=== PATIENT | female | born 1980 | race Caucasian/White ===

== ENCOUNTER → 2024-01-22 14:40 | Outpatient (REF) | payer SELFPAY | LOC: PNTC 14:40 | PROVIDERS: ATTENDING PHYSICIAN Advanced Practice Midwife | DX: O09.529 Supervision of elderly multigravida, unspecified trimester (principal); Z36.0 Encounter for antenatal screening for chromosomal anomalies; Z36.82 Encounter for antenatal screening for nuchal translucency | CPT/HCPCS: 36415; 76801; 76813 ==

== ENCOUNTER → 2024-05-25 08:59 | Outpatient (REF) | payer OTHER, SELFPAY | LOC: PNTC 08:59 | PROVIDERS: ATTENDING PHYSICIAN Advanced Practice Midwife | DX: O09.529 Supervision of elderly multigravida, unspecified trimester (principal) | CPT/HCPCS: 59025; 76818 ==

== ENCOUNTER → 2024-06-01 13:49 | Outpatient (REF) | payer OTHER, SELFPAY | LOC: PNTC 13:49 | PROVIDERS: ATTENDING PHYSICIAN Advanced Practice Midwife | DX: O09.529 Supervision of elderly multigravida, unspecified trimester (principal) | CPT/HCPCS: 59025; 76816 ==

== ENCOUNTER → 2024-06-08 09:30 | Outpatient (REF) | payer OTHER, SELFPAY | LOC: PNTC 09:30 | PROVIDERS: ATTENDING PHYSICIAN Advanced Practice Midwife | DX: O09.529 Supervision of elderly multigravida, unspecified trimester (principal) | CPT/HCPCS: 59025; 76815 ==

== ENCOUNTER → 2024-06-15 09:24 | Outpatient (REF) | payer OTHER, SELFPAY | LOC: PNTC 09:24 | PROVIDERS: ATTENDING PHYSICIAN Advanced Practice Midwife | DX: O09.521 Supervision of elderly multigravida, first trimester (principal) | CPT/HCPCS: 59025; 76815 ==

== ENCOUNTER 2024-06-22 09:41 | Observation (INO) | payer OTHER, SELFPAY ==
[2024-06-22 10:32] LABS: Hematocrit 34.4 % (37.0-47.0); Hemoglobin 11.5 g/dL (12.0-16.0); Mean Corp Hgb Conc. 33.4 g/dL (33.0-37.0); Mean Corpuscular Volume 95.8 fL (81.0-99.0); Platelet Count 223 10^3/uL (130-400); Red Blood Cell Count 3.59 10^6/uL (4.20-5.40); Red Cell Dist. Width 13.5 % (11.5-14.5); Urine Albumin Negative (Neg - Trace); Urine Bilirubin Negative (Negative); Urine Character Clear (Clear); Urine Color Straw; Urine Glucose Negative (Negative); Urine Ketone Negative (Negative); Urine Leukocyte Negative (Negative); Urine Nitrite Negative (Negative); Urine Occult Blood Negative (Negative); Urine Urobilinogen Negative (Neg - 1+); White Blood Cell Count 13.2 10^3/uL (4.8-10.8)
[2024-06-22 10:36] VITALS: BP 141/92; BMI 30.7
[2024-06-22 10:40] LABS: ALT (SGPT) 17 U/L (0-35); AST (SGOT) 27 U/L (14-36); Albumin 3.4 g/dl (3.5-5.0); Alkaline Phosphatase 124 U/L (38-126); Blood Urea Nitrogen 14 mg/dl (7-17); Calcium 11.1 mg/dl (8.4-10.2); Carbon Dioxide 22 mmol/L (22-30); Chloride 104 mmol/L (98-107); Glucose 75 mg/dl (70-99); Potassium 4.2 mmol/L (3.5-5.1); Sodium 134 mmol/L (135-145); Total Bilirubin 0.1 mg/dl (0.2-1.3); Total Protein 6.2 g/dl (6.3-8.2); eGFR > 60.00
[2024-06-22 11:13] LABS: Protein/creatinine Ratio 0.7; Urine Protein 16 mg/dl
[2024-06-22] MEDS: LR 1000 IV (12:30)
== END 2024-06-22 14:54 | disposition home or self-care (01) ==
LOC: LDRP 09:41
PROVIDERS: ADMITTING PHYSICIAN Obstetrics & Gynecology; ATTENDING PHYSICIAN Advanced Practice Midwife
DX: O14.13 Severe pre-eclampsia, third trimester (principal); Z3A.35 35 weeks gestation of pregnancy
CPT/HCPCS: 59025; 76815; 80053; 81003; 82570; 84156; 85027; G0378

== ENCOUNTER 2024-06-29 10:26 | Observation (INO) | payer OTHER, SELFPAY ==
[2024-06-29 10:49] VITALS: BP 143/87; BMI 31.3
[2024-06-29 11:04] LABS: % Basophils 0.2 % (0-2); % Eosinophils 0.7 % (0-6); % Immature Granulocytes 0.4 % (0-0.5); % Lymphocytes 32.1 % (20.5-51.1); % Monocytes 5.4 % (1.7-9.3); % Neutrophils 61.2 % (42.2-75.2); Absolute Eosinophils 0.1 10^3/uL (0-0.7); Absolute Lymphocytes 3.4 10^3/uL (1.2-3.4); Absolute Monocytes 0.6 10^3/uL (0.1-0.6); Absolute Neutrophils 6.4 10^3/uL (1.4-6.5); Hematocrit 34.7 % (37.0-47.0); Hemoglobin 11.8 g/dL (12.0-16.0); Mean Platelet Volume 11.1 fL (7.4-10.4); Nucleated Red Blood Cells % 0 %; Platelet Count 206 10^3/uL (130-400); Red Blood Cell Count 3.69 10^6/uL (4.20-5.40); Red Cell Dist. Width 13.4 % (11.5-14.5); White Blood Cell Count 10.4 10^3/uL (4.8-10.8)
[2024-06-29 11:11] LABS: ALT (SGPT) 15 U/L (0-35); AST (SGOT) 27 U/L (14-36); Albumin 3.4 g/dl (3.5-5.0); Alkaline Phosphatase 120 U/L (38-126); Blood Urea Nitrogen 13 mg/dl (7-17); Calcium 10.3 mg/dl (8.4-10.2); Carbon Dioxide 24 mmol/L (22-30); Chloride 102 mmol/L (98-107); Estimated Creatinine Clearance 88 ml/min; Glucose 75 mg/dl (70-99); Potassium 4.2 mmol/L (3.5-5.1); Sodium 133 mmol/L (135-145); Total Bilirubin 0.3 mg/dl (0.2-1.3); Total Protein 6.3 g/dl (6.3-8.2); eGFR > 60.00
== END 2024-06-29 12:00 | disposition home or self-care (01) ==
LOC: PNTC-IN 10:26
PROVIDERS: ADMITTING PHYSICIAN Obstetrics & Gynecology; ATTENDING PHYSICIAN Advanced Practice Midwife
DX: O14.03 Mild to moderate pre-eclampsia, third trimester (principal); O09.523 Supervision of elderly multigravida, third trimester; Z3A.36 36 weeks gestation of pregnancy; Z88.0 Allergy status to penicillin; Z88.8 Allergy status to other drugs, medicaments and biological substances; Z88.3 Allergy status to other anti-infective agents; Z91.040 Latex allergy status; Z87.442 Personal history of urinary calculi
CPT/HCPCS: 59025; 76816; 80053; 85025; G0378

== ENCOUNTER 2024-06-29 23:07 | Inpatient (IN) | payer OTHER, SELFPAY ==
[2024-06-29 23:15] VITALS: BMI 30.7
[2024-06-29] MEDS: LR 1000 IV (23:59)
[2024-06-30 00:10] LABS: Mean Corp Hgb Conc. 34.4 g/dL (33.0-37.0); Mean Corpuscular Hgb 32.1 pg (27.0-31.0); Mean Corpuscular Volume 93.3 fL (81.0-99.0); Platelet Count 240 10^3/uL (130-400); Red Blood Cell Count 3.43 10^6/uL (4.20-5.40); Red Cell Dist. Width 13.5 % (11.5-14.5); White Blood Cell Count 11.7 10^3/uL (4.8-10.8)
[2024-06-30 00:31] LABS: ALT (SGPT) 15 U/L (0-35); AST (SGOT) 28 U/L (14-36); Albumin 3.6 g/dl (3.5-5.0); Alkaline Phosphatase 118 U/L (38-126); Blood Urea Nitrogen 17 mg/dl (7-17); Calcium 10.7 mg/dl (8.4-10.2); Carbon Dioxide 20 mmol/L (22-30); Chloride 102 mmol/L (98-107); Estimated Creatinine Clearance 87 ml/min; Glucose 87 mg/dl (70-99); Potassium 4.3 mmol/L (3.5-5.1); Sodium 132 mmol/L (135-145); Total Bilirubin 0.3 mg/dl (0.2-1.3); Total Protein 6.4 g/dl (6.3-8.2); Uric Acid 8.7 mg/dl (2.5-6.2); eGFR > 60.00
[2024-06-30 01:03] LABS: % Basophils 0.3 % (0-2); % Eosinophils 0.8 % (0-6); % Immature Granulocytes 0.5 % (0-0.5); % Lymphocytes 36.7 % (20.5-51.1); % Monocytes 7.7 % (1.7-9.3); Absolute Eosinophils 0.1 10^3/uL (0-0.7); Absolute Immature Granulocytes 0.1 10^3/uL (0-0.05); Absolute Lymphocytes 4.3 10^3/uL (1.2-3.4); Absolute Monocytes 0.9 10^3/uL (0.1-0.6); Absolute Neutrophils 6.3 10^3/uL (1.4-6.5); Nucleated Red Blood Cells % 0 %
[2024-06-30 01:09] VITALS: BP 129/96
[2024-06-30] MEDS: PITOCIN 30 UNITS/NSS 500 ML IV (01:17)
[2024-06-30] MEDS: LR 1000 IV (03:30)
[2024-06-30] MEDS: STADOL 1 MG IV (05:04)
[2024-06-30] MEDS: XYLOCAINE-MPF 1% VIAL 30 ML INFIL (06:20)
[2024-06-30] MEDS: MOTRIN 600 MG PO ×2 (10:53→18:47)
[2024-06-30] MEDS: SYNTHROID PO (12:18)
[2024-06-30] MEDS: TRANDATE 200 MG PO ×2 (12:22→20:07)
[2024-06-30 13:20] LABS: Syphilis/T. pallidum Ab Reflex Negative (Negative)
[2024-06-30] MEDS: TUMS CHEWABLE TABLET PO ×2 (18:47)
[2024-06-30] MEDS: TYLENOL 650 MG PO (23:08)
[2024-06-30] MEDS: TUMS CHEWABLE TABLET 200 MG PO (23:14)
[2024-07-01] MEDS: SYNTHROID 50 MCG PO (06:14)
[2024-07-01] MEDS: MOTRIN 600 MG PO (08:56)
[2024-07-01] MEDS: TRANDATE 200 MG PO ×2 (08:56→20:04)
[2024-07-01] MEDS: PRENATAL PLUS 1 TABLET PO (08:56)
[2024-07-01] MEDS: SENOKOT-S 1 TABLET PO (08:57)
[2024-07-01] MEDS: TUMS CHEWABLE TABLET PO ×3 (08:58→23:26)
[2024-07-01] MEDS: TYLENOL 650 MG PO (14:40)
[2024-07-02] MEDS: TYLENOL 650 MG PO (01:07)
[2024-07-02] MEDS: SYNTHROID 50 MCG PO (06:17)
[2024-07-02] MEDS: TRANDATE 200 MG PO (08:17)
[2024-07-02] MEDS: TUMS CHEWABLE TABLET PO (08:17)
[2024-07-02] MEDS: PRENATAL PLUS 1 TABLET PO (08:17)
[2024-07-02] MEDS: ADACEL 0.5 ML IM (10:28)
[2024-07-02] MEDS: M-M-R II 0.5 ML SC (10:37)
== END 2024-07-02 11:16 | disposition home or self-care (01) | DRG 806 ==
LOC: LDRP 23:07
PROVIDERS: ADMITTING PHYSICIAN Obstetrics & Gynecology; ATTENDING PHYSICIAN Advanced Practice Midwife; FAMILY PHYSICIAN Family Medicine
PROC: 3E033VJ Introduction of Other Hormone into Peripheral Vein, Percutaneous Approach (ICD-10-PCS; 2024-06-29)
PROC: 0HQ9XZZ Repair Perineum Skin, External Approach (ICD-10-PCS; 2024-06-30)
PROC: 6A550ZT Pheresis of Cord Blood Stem Cells, Single (ICD-10-PCS; 2024-06-30)
PROC: 10E0XZZ Delivery of Products of Conception, External Approach (ICD-10-PCS; 2024-06-30)
PROC: 3E0234Z Introduction of Serum, Toxoid and Vaccine into Muscle, Percutaneous Approach (ICD-10-PCS; 2024-07-02)
PROC: 3E0134Z Introduction of Serum, Toxoid and Vaccine into Subcutaneous Tissue, Percutaneous Approach (ICD-10-PCS; 2024-07-02)
DX: O42.013 Preterm premature rupture of membranes, onset of labor within 24 hours of rupture, third trimester (principal); O10.02 Pre-existing essential hypertension complicating childbirth; Z37.0 Single live birth; Z3A.36 36 weeks gestation of pregnancy; Z23 Encounter for immunization; O11.4 Pre-existing hypertension with pre-eclampsia, complicating childbirth; R11.10 Vomiting, unspecified; O69.81X0 Labor and delivery complicated by cord around neck, without compression, not applicable or unspecified; O69.2XX0 Labor and delivery complicated by other cord entanglement, with compression, not applicable or unspecified; O99.02 Anemia complicating childbirth; D64.9 Anemia, unspecified; O70.0 First degree perineal laceration during delivery; Z88.0 Allergy status to penicillin; Z88.8 Allergy status to other drugs, medicaments and biological substances; Z88.3 Allergy status to other anti-infective agents; Z91.040 Latex allergy status; Z87.442 Personal history of urinary calculi
CPT/HCPCS: 36415; 59025; 76816; 80053; 84550; 85025; 86780; 86850; 86900; 86901; 87491; 87591; 90707; 90715; G0378